=== PATIENT | female | born 1985 | race Caucasian/White ===

== ENCOUNTER → 2016-09-12 | Outpatient (CLI) | payer OTHER ==
[~2016-09-12] MED LIST: KLON0.5T
--- NOTE | 2016-09-12 14:21 | REP ---
Clinical: Anatomical evaluation. Comparison: 08/23/2016 . Findings: Examination demonstrates a single live intrauterine in cephalic presentation. motion is identified by technologist. Placenta is noted posteriorly, grade zero and low-lying approximately 2.5 cm from the closed internal os. Amniotic fluid volume is normal. Cervix measures 5.3 cm in length and appears closed. No evidence for nuchal cord. Gestational age by first ultrasound 20 weeks 1 day with KAYLEY 01/29/2017 . Gestational age by current measurements 19 weeks 4 days with KAYLEY 02/02/2017 . FHR equals 144 beats per minute. Estimated weight 316 grams ( 35th percentile). Anatomical assessment demonstrates normal structures including cranium, choroid plexus, cavum, cerebellum/posterior fossa, facial features, lungs, four-chamber heart/ventricular outflow tracts, diaphragm, stomach, cord insertion/three-vessel cord, kidneys/bladder, spine, and extremities. Impression: Single live intrauterine in cephalic presentation demonstrating appropriate interval growth and normal, complete anatomical assessment. Low-lying posterior placenta approximately 2.5 cm from the closed internal os. Signed by Barry Patiño MD 09/12/2016 02:12 P
== END ==
LOC: M SMT 12:54
PROVIDERS: ATTEND Obstetrics & Gynecology
DX: Z34.82 Encounter for supervision of other normal pregnancy, second trimester (principal)

== ENCOUNTER → 2016-10-13 | Outpatient (REF) | payer OTHER | END | disposition home or self-care (01) | LOC: M LAB REF 16:58 | PROVIDERS: ATTEND Pediatrics | DX: Z34.82 Encounter for supervision of other normal pregnancy, second trimester (principal); Z36 Encounter for antenatal screening of mother; Z3A.00 Weeks of gestation of pregnancy not specified ==

== ENCOUNTER → 2016-11-01 | Outpatient (CLI) | payer OTHER ==
[2016-11-01 18:15] LABS: MEAN CORPUSCULAR HEMOGLOBIN 30.5 pg (27.0-33.0); MEAN CORPUSCULAR HGB CONC 32.9 g/dl (32.0-36.5); MEAN CORPUSCULAR VOLUME 92.7 fl (80.0-96.0); RED CELL DISTRIBUTION WIDTH 13.6 % (11.5-14.5); WHITE BLOOD COUNT 11.1 K/mm3 (4.0-10.0)
== END ==
LOC: M SMT 13:06
PROVIDERS: ATTEND Obstetrics & Gynecology
DX: Z34.83 Encounter for supervision of other normal pregnancy, third trimester (principal)

== ENCOUNTER → 2016-12-30 | Outpatient (REF) | payer OTHER | LOC: M LAB REF 16:56 | PROVIDERS: ATTEND Advanced Practice Midwife | DX: Z34.83 Encounter for supervision of other normal pregnancy, third trimester (principal) ==

== ENCOUNTER 2017-01-07 21:50 | Inpatient (IN) | payer OTHER ==
[2017-01-07] MEDS ORDERED: LR 1,000 ML IV SCH (22:48)
[2017-01-07] MEDS ORDERED: OXYTOCIN DRIP 30 UNITS in APPROPRIATE DILUENT 1 EA IV SCH (23:00)
[2017-01-07 23:31] LABS: MEAN CORPUSCULAR HEMOGLOBIN 29.3 pg (27.0-33.0); MEAN CORPUSCULAR HGB CONC 32.9 g/dl (32.0-36.5); MEAN CORPUSCULAR VOLUME 88.9 fl (80.0-96.0); RED CELL DISTRIBUTION WIDTH 13.7 % (11.5-14.5); WHITE BLOOD COUNT 10.5 K/mm3 (4.0-10.0)
[2017-01-08] MEDS ORDERED: FENTANYL 2MCG/ML ROPIVACAINE 0.2% IN 0.9% NACL 200ML IVBAG As Ordered ONE (01:02)
[2017-01-08] MEDS ORDERED: diphenhydrAMINE INJ 50MG/ML VIAL (J1200) IV PRN (02:05)
[2017-01-08] MEDS ORDERED: LACTATED RINGER'S 1000 ML IV PRN (02:05)
[2017-01-08] MEDS ORDERED: REFRIGERATOR IV KEYS XX PRN (02:05)
[2017-01-08] MEDS ORDERED: NALOXONE INJ 0.4 MG/1 ML VIAL (J2310) IV PRN (02:05)
[2017-01-08] MEDS ORDERED: ONDANSETRON 4MG/2ML VIAL (J2405) IV PRN (02:05)
[2017-01-08] MEDS ORDERED: FENTANYL/ROPIVACAINE/NACL BAG 200 ML EPIDURAL SCH (02:05)
[2017-01-08] MEDS ORDERED: EPIDURAL/PCA KEYS XX PRN (02:05)
[2017-01-08] MEDS ORDERED: ePHEDrine SULFATE 25 MG/5 ML(5MG/ML) SYRINGE IV PRN (02:05)
[2017-01-08] MEDS ORDERED: EPIDURAL COMMENT XX SCH (02:05)
[2017-01-08] MEDS ORDERED: OXYTOCIN DRIP 30 UNITS in APPROPRIATE DILUENT 1 EA IV SCH (02:44)
[2017-01-08] MEDS ORDERED: DOCUSATE SODIUM 100 MG CAP PO PRN (02:45)
[2017-01-08] MEDS ORDERED: RHOGAM 300 MCG (1500 IU) INJ (J2790) IM SCH (02:45)
[2017-01-08] MEDS ORDERED: MEASLES,MUMPS,RUBELLA VACCINE INJ (MMR-II) (90707) SC SCH (02:45)
[2017-01-08] MEDS ORDERED: ANUSOL HC CREAM 30GM TOP PRN (02:45)
[2017-01-08] MEDS ORDERED: ACETAMINOPHEN 500 MG TAB PO PRN (02:45)
[2017-01-08] MEDS ORDERED: MOM 30ML SUSPENSION UDC PO PRN (02:45)
[2017-01-08] MEDS ORDERED: DIBUCAINE 1% OINTMENT 30GM TOP PRN (02:45)
[2017-01-08] MEDS ORDERED: METHYLERGONOVINE MALEATE 0.2 MG TAB PO PRN (02:45)
--- NOTE | 2017-01-08 04:35 | HPE ---
DATE OF ADMISSION: 01/07/2017 REASON FOR ADMISSION: Spontaneous rupture of membranes. HISTORY OF PRESENT ILLNESS: Mrs. Sanchez is a 31-year-old 5, para 2, who presents at 37 weeks and 0 days estimated gestational age by 6-week ultrasound with complaints of leakage of clear fluid that occurred approximately at 10 p.m. tonight. She reports some irregular contractions. Denies any vaginal bleeding. Reports active movement. Her course has just been remarkable for a previous history of a delivery at 34 weeks. She has been receiving weekly Isatu injections from 16-36 weeks, otherwise unremarkable course. She initiated care in the first trimester and has been appropriate throughout. PAST MEDICAL HISTORY: History of depression. PAST SURGICAL HISTORY: Tonsillectomy. PAST OBSTETRICAL HISTORY: 5, para 2. She has had one term vaginal delivery and one delivery, as well as a miscarriage and an elective termination. She has proven to 6 pounds 13 ounces. MEDICATIONS: Include vitamins and Ambien. ALLERGIES: She has allergies to KLONOPIN. SOCIAL HISTORY: She denies any smoking tobacco or drug use during her . PHYSICAL EXAMINATION: VITAL SIGNS: Stable. She is afebrile. She has a category 1 heart rate tracing with irregular contractions on tachometer. GENERAL APPEARANCE: Well appearing, no acute distress. LUNGS: Clear to auscultation bilaterally. CARDIOVASCULAR: Heart is regular rate and rhythm. ABDOMEN: Soft, gravid, nontender. Estimated weight (EFW) 3200 grams. CERVICAL EXAM: She is 4 cm dilated, 75% effaced, -2 station. LABORATORIES: Her blood type is A positive. Antibody screen is negative. Rubella is immune. RPR is nonreactive. Hepatitis surface antigen is negative. HIV is negative. Hepatitis C is nonreactive. Chlamydia and gonorrhea screens are negative. She has a normal 1-hour Glucola. She is group B Streptococcus (GBS) negative. ASSESSMENT: 1. This patient is a 31-year-old 5, para 2 at 37 weeks with grossly ruptured spontaneous rupture of membranes. 2. Reassuring status. PLAN: 1. Admit to labor and delivery. CBC, RPR, type and screen. 2. Patient is a good candidate for an epidural. 3. Anticipate spontaneous vaginal delivery.
--- NOTE | 2017-01-08 05:48 | DN ---
DATE OF DELIVERY: 01/08/2017 TIME OF : 217 GENDER: Female. SCORES: 9 and 9. WEIGHT: 5 pounds 12 ounces or 2614 grams. ANESTHESIA: Epidural. ESTIMATED BLOOD LOSS: 300 mL. COUNTS: 5 laparotomy sponges accounted for prior to and after delivery. LACERATIONS: None. DELIVERY NOTE: On 01/08/2017, at 0218, Mrs. Sanchez, a 31-year-old 5, now para 3 had a spontaneous vaginal delivery of a liveborn female infant, scores 9 and 9, weight 5 pounds 12 ounces or 2614 grams. Head was delivered occiput anterior (OA) over an intact perineum. There was a tight nuchal cord, which was manually reduced followed by delivery of right anterior shoulder, left posterior shoulder and corpus. Infant was handed to mother with a good cry. Cord was clamped times two, was cut. Cord blood was obtained. Placenta was drained and delivered grossly intact. A premixed bag of 500 mL of normal saline with 30 units of Pitocin was then bolused along with uterine massage until the uterus was firm. Upon inspection, the cervix, vagina, and perineum were grossly intact, hemostatic. Mother and baby recovered in stable condition.
[2017-01-08] MEDS: IBUPROFEN 800 MG TAB PO PRN ×2 (07:06→19:46)
[2017-01-08] MEDS: PRENATAL VITAMIN TAB PO SCH (09:00)
[2017-01-08 18:10] VITALS: BP 109/58
[2017-01-09 05:30] VITALS: BP 114/62
[2017-01-09] MEDS: IBUPROFEN 800 MG TAB PO PRN (07:47)
[2017-01-09] MEDS ORDERED: ACET50TA PO (08:14)
[2017-01-09] MEDS ORDERED: IBUP-1114 PO (08:16)
[2017-01-09] MEDS ORDERED: COLA100C3 PO (08:17)
[2017-01-09] MEDS ORDERED: MOM30SS PO (08:17)
[2017-01-09] MEDS: PRENATAL VITAMIN TAB PO SCH (08:24)
== END 2017-01-09 11:32 | disposition home or self-care (01) | DRG 775 ==
LOC: M LDO 21:50 → M LDI 22:25 → M OBS 01-08 06:28
PROVIDERS: ADMIT Obstetrics & Gynecology; ATTEND Obstetrics & Gynecology
PROC: 10E0XZZ Delivery of Products of Conception, External Approach (ICD-10-PCS; principal; 2017-01-08)
DX: O69.1XX0 Labor and delivery complicated by cord around neck, with compression, not applicable or unspecified (principal); Z3A.37 37 weeks gestation of pregnancy; Z37.0 Single live birth

== ENCOUNTER → 2018-02-20 | Outpatient (CLI) | payer OTHER ==
[2018-02-20 18:56] LABS: HEMATOCRIT 40.5 % (36.0-47.0); MEAN CORPUSCULAR HEMOGLOBIN 28.3 pg (27.0-33.0); MEAN CORPUSCULAR HGB CONC 32.1 g/dl (32.0-36.5); PLATELET COUNT, AUTOMATED 269 10^3/uL (150-450); RED CELL DISTRIBUTION WIDTH 13.2 % (11.5-14.5); WHITE BLOOD COUNT 9.3 10^3/uL (4.0-10.0)
[2018-02-20 19:34] LABS: FREE T4 0.99 NG/DL (0.76-1.46); THYROID STIMULATING HORMONE 0.944 uIU/ML (0.358-3.740)
== END ==
LOC: M SMT 10:59
DX: N92.0 Excessive and frequent menstruation with regular cycle (principal)
CPT/HCPCS: 84443

== ENCOUNTER → 2018-03-22 | Outpatient (REF) | payer OTHER | LOC: M LAB REF 19:22 | DX: R87.615 Unsatisfactory cytologic smear of cervix (principal) ==

== ENCOUNTER → 2018-03-28 | Outpatient (CLI) | payer OTHER | LOC: M RAD 16:01 | DX: N92.0 Excessive and frequent menstruation with regular cycle (principal) | CPT/HCPCS: 76856 ==

== ENCOUNTER → 2018-03-30 | Outpatient (CLI) | payer OTHER ==
[2018-03-30 16:56] LABS: PROLACTIN 4.7 NG/ML
[2018-03-30 16:57] LABS: ESTRADIOL < 19.0 PG/ML
[2018-03-30 16:57] LABS: FOLLICLE STIMULATING HORMONE 3.7 mIU/mL; LUTEINIZING HORMONE 2.7 mIU/mL
[2018-04-04 14:17] LABS: 17 HYDROXY PROGESTERONE 13 ng/dL (.); DEHYDROEPIANDROSTERONE SULFATE 56.7 ug/dL (84.8-378.0); TESTOSTERONE FREE (DIRECT) 0.7 pg/mL (0.0-4.2)
== END ==
LOC: M LRY 11:34
DX: N92.1 Excessive and frequent menstruation with irregular cycle (principal)
CPT/HCPCS: 83001

== ENCOUNTER 2018-04-18 11:18 | Day surgery (SDC) | payer OTHER ==
[2018-04-18 13:03] LABS: CONTROL LINE UCG INT CTR LINE PRESENT; URINE PREG TEST NEGATIVE (NEGATIVE)
[2018-04-18 13:15] LABS: HEMATOCRIT 34.9 % (36.0-47.0); HEMOGLOBIN 11.1 g/dl (12.0-15.5); MEAN CORPUSCULAR HEMOGLOBIN 27.3 pg (27.0-33.0); MEAN CORPUSCULAR HGB CONC 31.8 g/dl (32.0-36.5); PLATELET COUNT, AUTOMATED 274 10^3/uL (150-450); RED BLOOD COUNT 4.06 10^6/uL (4.00-5.40); RED CELL DISTRIBUTION WIDTH 12.8 % (11.5-14.5); WHITE BLOOD COUNT 7.7 10^3/uL (4.0-10.0)
[2018-04-18] MEDS ORDERED: MIDAZOLAM INJ 2 MG/2 ML VIAL (J2250) As Ordered (13:26)
[2018-04-18] MEDS ORDERED: LIDOCAINE 2% INJ 100 MG/5 ML SDV (FOR ANES.) As Ordered (13:26)
[2018-04-18] MEDS ORDERED: PROPOFOL 200 MG/20 ML VIAL As Ordered (13:26)
[2018-04-18] MEDS ORDERED: fentaNYL 100 MCG/2 ML INJECTION (J3010) As Ordered (13:26)
[2018-04-18] MEDS ORDERED: dexameTHASONE 4 MG/ML 1ML VIAL (J1100) As Ordered (13:26)
[2018-04-18] MEDS ORDERED: ONDANSETRON 4MG/2ML VIAL (J2405) As Ordered (13:42)
[2018-04-18] MEDS ORDERED: KETOROLAC 60 MG/2 ML VIAL (J1885) As Ordered (13:42)
[2018-04-18] MEDS: SILVER NITRATE APPLICATOR As Ordered ×2 (13:50→13:51)
[2018-04-18] MEDS ORDERED: fentaNYL 100 MCG/2 ML INJECTION (J3010) IV (14:30)
[2018-04-18] MEDS ORDERED: METOCLOPRAMIDE INJ 10MG/2ML VIAL (J2765) IV (14:30)
[2018-04-18] MEDS ORDERED: LR 1,000 ML IV (14:30)
[2018-04-18] MEDS ORDERED: ONDANSETRON 4MG/2ML VIAL (J2405) IV (14:30)
[2018-04-18] MEDS ORDERED: PERCOCET 5MG/325MG TAB PO ×2 (14:30→14:45)
[2018-04-18] MEDS ORDERED: KETOROLAC 30 MG/ML VIAL (J1885) IV (20:00)
== END 2018-04-18 15:21 | disposition home or self-care (01) ==
LOC: M SDC 15:21
DX: N92.6 Irregular menstruation, unspecified (principal); E66.9 Obesity, unspecified; F41.9 Anxiety disorder, unspecified; Z79.899 Other long term (current) drug therapy; Z88.8 Allergy status to other drugs, medicaments and biological substances
CPT/HCPCS: 58558